=== PATIENT | male | born 1980 | race Caucasian/White ===

== ENCOUNTER 2025-01-20 12:00 | Emergency (ER) | payer SELFPAY ==
[2025-01-20 12:03] VITALS: BP 222/118
[2025-01-20 12:25] VITALS: BP 171/100
[2025-01-20 12:30] VITALS: BP 171/100
--- NOTE | 2025-01-20 12:48 | ED.GENMED ---
History of Present Illness
<Cari Francis, TARE WORKER - Last Filed: 01/22/25 08:44>
General
Chief Complaint: Facial Problem
Source: patient
Exam Limitations: none
Time Seen by Provider: 01/20/25 12:29
Nursing documentation reviewed up to this point in time: agreed with
History of Present Illness
History of Present Illness:
45 yo male w h/o TIA, CHF, Endocarditis, HTN, Aortic, Pulmonic valve replacements age 17, presents for upper lip pain and swelling which started yesterday. Denies fever/chills. Denies n/v. Afraid 'something got in there.' He was working on his bike
2 days ago.
Past History
<Cari Francis, TARE WORKER - Last Filed: 01/22/25 08:44>
Past History
ED Past Medical History: HTN, Valvular disease, Other ('ministroke' 05/2011) and Other (bacterial endocarditis)
ED Past Surgical History: Cardiac (mechanical AVR replacement 01/2007 Dr. Cardoza.; AVR/MRV 11/02/21 K[facility])
Social History
Tobacco: Smoker
Alcohol: Former
Drug: None
Personal: Single
Living: alone
Employment: Employed
Family History
Family History: Hypertension
Review of Systems
<Cari Francis, TARE WORKER - Last Filed: 01/22/25 08:44>
Review of Systems
Allergies reviewed?: Yes
All Other Systems: ROS reviewed and negative except as documented in HPI and ROS
Constitutional: Denies fever or chills
EENT: Reports other (upper lip pain and swelling)
Phy Exam
<Cari Francis, TARE WORKER - Last Filed: 01/22/25 08:44>
Physical Exam
Physical Exam:
GENERAL: No acute distress. A&Ox3.
CONSTITUTIONAL: Afebrile.
EYES: clear, conjunctivae normal
ENMT: moist mucus membranes, Pharynx nl, teeth appear healthy, upper lip with indurated, tender area, tiny scab in the center. Inner upper lip and gum appear normal.
RESPIRATORY: Regular respirations, nonlabored, lungs clear.
CARDIOVASCULAR: Regular rate and rhythm, no murmurs, no rubs.
GI: Soft, nontender, normal BS
MUSCULOSKELETAL: Moves with ease. Well perfused.
SKIN: Warm, dry, pink
PSYCH: Normal mood and affect. Well kept, interactive and appropriate
NEUROLOGIC: Awake, alert and oriented. No focal neurological deficits
Course
<Cari Francis TARE WORKER - Last Filed: 01/22/25 08:44>
Orders/Labs/Results
Orders:
Orders
01/20/25 13:08
Ampicillin/Sulbactam 3 G [Unasyn] 3 gm 0.9% Sodium Chloride 100 ml [Nss] 100 ml IV NOW
01/20/25 14:07
Ketorolac [Toradol] 15 mg IV NOW STA
Ondansetron Injectable [Zofran] 4 mg IV NOW STA
Vital Signs
Initial and Last Documented VS:
Initial Vital Signs
Temp Pulse Resp BP Pulse Ox
98 F 63 16 222/118 98
01/20/25 12:03 01/20/25 12:03 01/20/25 12:03 01/20/25 12:03 01/20/25 12:03
Last Documented Vital Signs
Temp Pulse Resp BP Pulse Ox
98 F 59 15 181/106 98
01/20/25 12:03 01/20/25 15:15 01/20/25 15:15 01/20/25 15:00 01/20/25 12:51
<Lincoln Lucero DO - Last Filed: 01/20/25 13:06>
Orders/Labs/Results
Orders:
Orders
01/20/25 13:08
Ampicillin/Sulbactam 3 G [Unasyn] 3 gm 0.9% Sodium Chloride 100 ml [Nss] 100 ml IV NOW
01/20/25 14:07
Ketorolac [Toradol] 15 mg IV NOW STA
Ondansetron Injectable [Zofran] 4 mg IV NOW STA
Vital Signs
Initial and Last Documented VS:
Initial Vital Signs
Temp Pulse Resp BP Pulse Ox
98 F 63 16 222/118 98
01/20/25 12:03 01/20/25 12:03 01/20/25 12:03 01/20/25 12:03 01/20/25 12:03
Last Documented Vital Signs
Temp Pulse Resp BP Pulse Ox
98 F 59 15 181/106 98
01/20/25 12:03 01/20/25 15:15 01/20/25 15:15 01/20/25 15:00 01/20/25 12:51
<Cari Francis NP - Last Filed: 01/22/25 08:44>
MDM/Problems Addressed
Differential Diagnosis Includes:
abscess, cellulitis
MDM/Problems Addressed:
45 yo male w h/o TIA, CHF, Endocarditis, HTN, Aortic, Pulmonic valve replacements age 17, presents for upper lip pain and swelling which started yesterday. Denies fever/chills. Denies n/v. Afraid 'something got in there.' He was working on his bike
2 days ago.
After explaining what an abscess is and what causes one, he agrees there is no reason to think there is a FB
Afebrile, NAD
Abscess upper lip. There is a 1 mm scab in the center of the indurated area which may be the entry site.
Aspiration attempt by myself and Dr. Lucero yielded nothing. Small incision with sterile #11 blade also yielded blood and minute amount of pus.
Plan: IV dose of Unasyn, rx for Augmentin sent to his pharmacy. Follow up with [facility] if not much improved in 2-3 days, return here over the weekend if worsening
Return instructions reviewed with pt and mom at bedside
2:10 p.m.
Pt moaning due to nausea. Teodora ordered, Toradol for pain.
BP high since arrival pt states not taking anything for BP as 'it went down' so he stopped his meds.
<Cari Francis, TARE WORKER - Last Filed: 01/22/25 08:44>
*Pulse Oximetry
SaO2: 98
Oxygen Mode of Delivery: Room air
Patient hypoxic: no
*Critical Care Note
Total Time (30-74mins, 75-104mins- exclusive of procedures): Not Applicable
ED Attending Note
<Cari Francis, TARE WORKER - Last Filed: 01/22/25 08:44>
-
Portions of this chart may have been created with voice recognition software.� Occasional wrong word or��sound alike� substitutions may have occurred due to the inherent limitations of voice recognition software.
<Lincoln Lucero, - Last Filed: 01/20/25 13:06>
ED Attending Note
Patient seen and examined by attending physician: Yes
I performed the substantive portion of visit, reviewed & personally made and approve the management plan that is documented in note by myself or JOSE ANGEL.: Yes
ED Attending Note:
I agree with Aileen's note
Patient presents with pain and swelling of upper lip.
Lip is visibly swollen, tender.
Bedside ultrasound used to look for a abscess collection. There is been to be a small collection. We attempted I&D without significant purulent return. Will start on antibiotics. Reevaluate if no better in 2 days.
Discharge Plan
Departure
Patient Disposition: Home (Routine Discharge)
Date of Disposition: 01/20/25
Time of Disposition: 15:23
Patient with high blood pressure during this ER visit?: No
Condition: Good
Discharge Problem:
Lip abscess
Instructions: Wound care - ED (DC), BLOOD PRESSURE, Skin Abscess
Prescriptions:
No Action
No Current Medications
0
Referrals:
[facility] - Follow up in 2-3 days
Activity Restrictions/Additional Instructions:
As we discussed warm moist compress for 10 minutes 4-6 times a day for the next 3 days.
Tylenol or Ibuprofen as needed for pain.
I sent a prescription to your pharmacy for antibiotic Augmentin to take twice a day for 10 days
Return here over the weekend if swelling, pain, redness get worse, vomiting, fever above 100.5 not relieved with Tylenol or Ibuprofen, or feeling sicker in any way
Your blood pressure is high here.. Have it rechecked next week at the clinic. It may be high due to pain and nausea. Once you feel better, it may come down.
If not, you may need blood pressure medication.
Interventions
Interventions:
*Risk Screen - Suicide Last Done: 01/20/25 12:03
*General Assessment Last Done: 01/20/25 12:27
*Neglect/Abuse Screening Last Done: 01/20/25 12:03
*ED COVID-19 Vaccine History Last Done: 01/20/25 12:27
*ED Influenza Vaccine History Last Done: 01/20/25 12:27
[facility] Risk Assessment Tool Last Done: 01/20/25 12:27
*Nursing Disposition Last Done: 01/20/25 15:54
ED- Neurological Assessment Last Done: 01/20/25 12:27
ED-Skin Assessment Last Done: 01/20/25 12:27
Discharge Date and Time
Discharge Date/Time: 01/20/25 15:55
Print Language: POLISH
[2025-01-20] MEDS: UNASYN IV (13:46)
[2025-01-20 14:03] VITALS: BP 200/105
[2025-01-20] MEDS: ZOFRAN 4 MG IV (14:14)
[2025-01-20] MEDS: TORADOL 15 MG IV (14:14)
[2025-01-20 14:57] VITALS: BP 176/112
[2025-01-20 15:00] VITALS: BP 181/106
== END 2025-01-20 15:55 | disposition home or self-care (01) ==
LOC: EMR 12:00
PROVIDERS: EMERGENCY PHYSICIAN Emergency Medicine; FAMILY PHYSICIAN Family Medicine
DX: K13.0 Diseases of lips (principal); I11.0 Hypertensive heart disease with heart failure; I50.9 Heart failure, unspecified; F17.200 Nicotine dependence, unspecified, uncomplicated; Z86.73 Personal history of transient ischemic attack (TIA), and cerebral infarction without residual deficits; Z95.2 Presence of prosthetic heart valve
CPT/HCPCS: 96375; 96365; 99284

== ENCOUNTER 2025-01-21 15:51 | Inpatient (IN) | payer OTHER, SELFPAY ==
[2025-01-21] VITALS (12 sets, daily range): BP systolic 150–197; BP diastolic 87–121; BMI 23.4; BMI 22.7
--- NOTE | 2025-01-21 13:06 | ED.GENMED ---
History of Present Illness
General
Chief Complaint: Skin Problem
Time Seen by Provider: 01/21/25 12:42
History of Present Illness
History of Present Illness:
Patient presents to the emergency department with possible lip abscess. Was seen yesterday in the emergency department and had an incision and drainage without any purulent return. He was started on Augmentin and did not pick this up from the
pharmacy. States he was doing some warm compresses overnight and had a small amount of bloody drainage. Today pain is worse, swelling is worse. He has some pain radiating to his jaw. No neck stiffness. No difficulty opening his mouth. No
fevers.
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
Past History
Past History
ED Past Medical History: HTN, Valvular disease, Other ('ministroke' 05/2011) and Other (bacterial endocarditis)
ED Past Surgical History: Cardiac (mechanical AVR replacement 01/2007 Dr. Cardoza.; AVR/MRV 11/02/21 [facility])
Social History
Tobacco: Smoker
Alcohol: Former
Drug: None
Personal: Single
Living: alone
Employment: Employed
Family History
Family History: Hypertension
Phy Exam
Physical Exam
Physical Exam:
General: No acute distress, disheveled
Head: NCAT
ENT: There is induration and erythema and warmth to the upper lip with scabbing and wound present to upper lip. There is no expressible purulence. There is no purulence or pustules inside the mouth. No trismus. Neck is supple. No tongue
elevation.
Neck, Normal in appearance, no swelling
Respiratory: No Respiratory distress
Abdomen: No distension
Ext: no edema
Neuro: HOLLAND, AOx4
Psych: Normal affect
Skin: Normal color
Sepsis
Sepsis Screening
Sepsis Assessment: Sepsis
Sepsis Screen
Sepsis Screen: Sepsis
Date: 01/21/25
Time: 18:00
Course
Orders/Labs/Results
Orders:
Orders
01/21/25 13:03
Doxycycline [Vibramycin] 100 mg PO NOW STA
Naproxen [Naprosyn] 500 mg PO NOW STA
01/21/25 13:42
Basic Metabolic Panel Urgent
Complete Blood Count/With Diff Urgent
Lactate Level [Lactic Acid] Urgent
Blood Culture Q30M
TITA Source: Blood/Venous
Specimen Description:
01/21/25 13:54
Vancomycin [Vancocin] 2,000 mg 0.9% Sodium Chloride 500 ml [Nss] 500 ml IV NOW
01/21/25 14:15
Blood Culture Q30M
TITA Source: Blood/Venous
Specimen Description:
01/21/25 14:50
CT Facial Bones W/ Iv Contrast Urgent
Comment:
Reason For Exam: evaluate extent of infection to anterior upper lip
01/21/25 15:24
Admit/Transfer Patient As Directed
Co-Sign Provider:
Level of Care: Inpatient admission
Assign to:: Medical/Surgical
Physician / Group: Walden/hospitalist
Diagnosis: facial cellulitis
Reason for Hospitalization: Cellulitis
Expected length of stay greater than two midnights?: Yes
ELOS- Estimated Length of Stay in days: 3
I certify the patient meets the requirements for IP care: Yes
01/21/25 15:25
PRN Pain Medication Management As Directed
May give lesser potent ordered pain med per pt: Yes
preference::
Protocol:: Medication orders for pain may be administered in a
manner that supports deferring to patient preference
when the pt is:
- Requesting an ordered lesser potent pain medication.
Least to most potent pain medications are defined
as: acetaminophen < NSAID < tramadol < opioids
(morphine, oxycodone, hydromorphone).
- Requesting a lesser dose of the same medication IF
ORDERED.
- Requesting a less intrusive route of administration
if both routes are prescribed by the provider (PO <
IV).
01/21/25 15:27
Code Status As Directed
Resuscitation Status: Full Code
01/21/25 17:28
Acetaminophen [Tylenol] 650 mg PO Q4HPRN PRN
Bisacodyl [Dulcolax] 10 mg RECTAL [id number] PRN
Docusate W/Senna [Senokot-S] 1 tablet PO BIDPRN PRN
Polyethylene Glycol Powder [Miralax] 17 grams PO DAILYPRN PRN
VANCOMYCIN Pharmacy to Dose [VANCOCIN Pharmacy to Dose] 1 each Pharmacy To Prepare [Call Pharmacy To Prepare] 0 ml IV PER PROTOCOL
01/21/25 17:28
Activity As Directed
Activity Level: Out of Bed-Early Mobility
Vital Signs As Directed
Frequency: Per unit guidelines
DX Deep Vein Thrombosis Video Routine
01/21/25 17:32
HYDROmorphone [Dilaudid] 0.25 mg IM Q4HPRN PRN
01/21/25 18:00
Enoxaparin Sodium [Lovenox] 40 mg SC QPM
01/22/25 06:00
Basic Metabolic Panel IN AM
Complete Blood Count/With Diff IN AM
Abnormal Lab Results
01/21/25
13:42
WBC 13.0 H 10^3/uL
(4.8-10.8)
MPV 10.8 H fL
(7.4-10.4)
Absolute Neuts (auto) 10.0 H 10^3/uL
(1.4-6.5)
Absolute Monos (auto) 1.4 H 10^3/uL
(0.1-0.6)
Neutrophils % 77.1 H %
(42.2-75.2)
Lymphocytes % 11.1 L %
(20.5-51.1)
Monocytes % 10.5 H %
(1.7-9.3)
Sodium 134 L mmol/L
(135-145)
01/21/25 13:42
01/21/25 13:42
Vital Signs
Initial and Last Documented VS:
Initial Vital Signs
Temp Pulse Resp BP Pulse Ox
99.0 F 58 22 197/113 98
01/21/25 12:34 01/21/25 12:34 01/21/25 12:34 01/21/25 12:34 01/21/25 12:34
Last Documented Vital Signs
Temp Pulse Resp BP Pulse Ox
98.3 F 61 22 178/98 98
01/21/25 17:35 01/21/25 17:35 01/21/25 17:35 01/21/25 17:35 01/21/25 17:35
*Pulse Oximetry
SaO2: 98
Oxygen Mode of Delivery: Room air
Patient hypoxic: no
*Critical Care Note
Total Time (30-74mins, 75-104mins- exclusive of procedures): Not Applicable
ED Attending Note
ED Attending Note
ED Attending Note:
Patient with return visit with worsening oral infection and likely early abscess formation, though no fluctuance or purulence at this time. Considered social determinants of health and given patient has not been able to pick up operator his antibiotic, with
his history of endocarditis and bacteremia, he is high risk for outpatient management. Will place an IV and give IV antibiotics and admit for further treatment.
-
Portions of this chart may have been created with voice recognition software.� Occasional wrong word or��sound alike� substitutions may have occurred due to the inherent limitations of voice recognition software.
Discharge Plan
Departure
Patient Disposition: Admit
Date of Disposition: 01/21/25
Time of Disposition: 14:36
Presentation/result/management discussed w/ accepting MD/DO: Hospitalist
Discharge Problem:
Cellulitis of face
Interventions
Interventions:
*Risk Screen - Suicide Last Done: 01/21/25 14:29
*General Assessment Last Done: 01/21/25 14:28
*Neglect/Abuse Screening Last Done: 01/21/25 14:29
*ED COVID-19 Vaccine History Last Done: 01/21/25 14:28
*ED Influenza Vaccine History Last Done: 01/21/25 14:28
[facility] Fall Risk Assessment Tool Last Done: 01/21/25 14:28
*Nursing Disposition Last Done: 01/21/25 17:25
ED-Skin Assessment Last Done: 01/21/25 14:27
Discharge Date and Time
Discharge Date/Time: 01/21/25 17:26
[2025-01-21] MEDS: NAPROSYN 500 MG PO (13:29)
--- NOTE | 2025-01-21 13:55 | EDRN ---
Dr. Nolasco said not to administer doxycycline only vancocin. Pharmacy called to mix and send vancocin.
[2025-01-21 14:01] LABS: Hematocrit 48.8 % (39.0-52.0); Hemoglobin 16.7 g/dL (13.0-18.0); Mean Corp Hgb Conc. 34.2 g/dL (33.0-37.0); Mean Corpuscular Volume 88.9 fL (80.0-94.0); Nucleated Red Blood Cells % 0 % (-); Platelet Count 162 10^3/uL (130-400); Red Cell Dist. Width 12.0 % (11.5-14.5)
[2025-01-21 14:15] LABS: Blood Urea Nitrogen 18 mg/dl (9-20); Calcium 9.4 mg/dl (8.4-10.2); Carbon Dioxide 28 mmol/L (22-30); Chloride 99 mmol/L (98-107); Estimated Creatinine Clearance > 125 ml/min; Glucose 92 mg/dl (70-99); Potassium 4.7 mmol/L (3.5-5.1); Sodium 134 mmol/L (135-145); eGFR > 60.00
[2025-01-21] MEDS: VANCOCIN 540 MG IV (14:22)
--- NOTE | 2025-01-21 15:34 | HPS.HSE ---
Addendum entered and electronically signed by Junior Walden MD 01/21/25 16:23:
I personally performed a history and physical exam of the patient and discussed management with the resident. I reviewed the resident's note and agree with the documented findings and plan of care HPI/CC.
45-year-old male with extensive cardiac medical history status post mitral aortic valve replacement who is presented with worsening of right upper lip swelling and pain. Patient was seen in ER yesterday for similar complaints and was prescribed
antibiotics which patient never picked up from the pharmacy. Patient was working on his bike and felt a metal piece hit his lip and had a laceration subsequently afterwards. States fevers and chills at home. Sitting of swelling. Denies any pain
in the teeth or oral region.
General: In mild distress due to pain
HEENT: NormoCephalic, Anicteric and Other (Upper lip: Moderate warmth, induration, erythema, swelling, tenderness of upper lip with red color scab/wound present. No fluctuance. No trismus. No tongue deviation. No uvula deviation. Neck is supple.
No damage to the gum noted
Respiratory: Clear
Cardiac: S1/S2 and Regular Rhythm
GI: Soft, Non Tender and Non Distended
Musculoskeletal: No Edema
Neuro: AO x 3
Hematologic/Lymphatic: No Lymphadenopathy
Psych: Calm
Assessment and plan
Acute right upper lip/facial cellulitis secondary to trauma
Mild leukocytosis with left-sided shift
Mild hyponatremia
Elevated blood pressure likely secondary to pain
Plan
Start patient on IV vancomycin
Vancomycin dosing per pharmacy
CT face ordered and pending
Ice pack for swelling
Follow-up on the blood culture results
Pain control
Monitor blood pressure
DVT prophylaxis
Original Note:
Family Physician
-
Family Physician: NOT KNOW UNKNOWN - PT DOES
Chief Complaint
-
Cellulitis
History of Present Illness
45-year-old male with complex cardiac history of congenital heart disease, Ross procedure in 1997, s/p AVR by Dr. Bliss 2006, acute endocarditis secondary to infective tooth and was sent to [place] for MVR and AVR in 2021.
He presents with upper lip swelling, and pain. Patient was seen in the ED yesterday with redness, swelling and pain of the upper lip ongoing for 3 days. He was prescribed Augmentin but did not pick the medication from pharmacy. Patient states
that 3 days ago he was working on his bike and he felt that a metal piece hit his lip and he had a laceration. He denies engulfing the foreign body however since then he has been having fever, chills, swelling and pain.
Medical History
Past Medical History
Past Medical History: Reports Other (h/o congenital heart disease s/p ross procedure age 16 s/p AVR by dr. peterson 2006 bacterial endocarditis secondary to infected tooth and was sent to [place] where he had the MVR and AVR on 11/02/21)
Past Surgical History: Reports Other (as above )
Social History
Tobacco: Smoker (occassionally)
Alcohol: None
Drug: None
Personal: Single
Living: Alone
Employment: Employed
Family History
Family History: Not pertinent
Allergies / Home Medications
Allergies reflects when Allergies were last updated in [facility].
Home Medications with original date entered in [facility]
Allergy/Medication List:
Allergies
Allergy/AdvReac Type Severity Reaction Status Date / Time
No Known Allergies Allergy Verified 01/20/25 12:02
Home Medications
No Meds [No Current Medications] 01/21/25
Review of Systems
-
History Source: Patient
A 12 point ROS was completed and negative except as noted: Yes
Physical Exam
Vital Signs
Vital Signs
Temp Pulse Resp BP Pulse Ox
99.0 F 79 24 181/115 96
01/21/25 12:34 01/21/25 15:15 01/21/25 15:15 01/21/25 15:00 01/21/25 15:15
Physical Exam
General: Conversant and Pain
HEENT: NormoCephalic, Anicteric and Other (Upper lip: Moderate warmth, induration, erythema, swelling, tenderness of upper lip with red color scab/wound present. No fluctuance. No trismus. No tongue deviation. No uvula deviation. Neck is supple. )
Respiratory: Clear
Cardiac: S1/S2 and Regular Rhythm
GI: Soft, Non Tender and Non Distended
Musculoskeletal: No Edema
Neuro: AO x 3
Hematologic/Lymphatic: No Lymphadenopathy
Psych: Calm
Laboratory Results
-
01/21/25 13:42
01/21/25 13:42
Laboratory Results
Lactic Acid 0.9 mmol/L (0.7-2.0) 01/21/25 13:42
Data Reviewed
-
Lab Data: Labs Reviewed by me and Discussed with Physician
Impression/Plan
-
IMPRESSION:
Upper lip cellulitis in setting of lip injury
History of congenital heart disease
History of Ross procedure at age 16
S/p AVR IN 2006
History of infective endocarditis s/p MVR and AVR in 2021
PLAN:
Upper lip cellulitis in the setting of lip injury
Afebrile, leukocytosis [id number]
FB injury while fixing his bike.
No Trismus or uvula deviation
Hemodynamically stable
Await for CT scan of facial bones.
Previous microbiology positive for Streptococcus mitis.
Continue Vancomycin.
Pain control.
Await blood culture
#History of congenital heart disease
#History of Ross procedure at age 16
#S/p AVR IN 2006
#History of infective endocarditis s/p MVR and AVR in 2021
Full code
Lovenox
Clear diet
--- NOTE | 2025-01-21 16:08 | CM ---
Chart reviewed. spoke with pt at ED bedside
Pt is in lots of pain
Lives in a house rented from his friend
Independent
PCP Melany Jaime
does NOT have one
RX yes
Pharmacy [facility]? he was not sure
no hx of VN nor SNF
DCP is to return home
CM will continue to follow up for any dcp needs
[2025-01-21] MEDS: TYLENOL 650 MG PO (16:11)
[2025-01-21] MEDS: MORPHINE SULFATE 2 MG IV ×2 (16:38→21:54)
[2025-01-21] MEDS: APRESOLINE 10 MG PO ×2 (17:15→21:46)
--- NOTE | 2025-01-21 17:55 | PHA.VAN.IN ---
Assessment
- Assessment
Renal Function: Appears similar to baseline
AUC Dosing Plan
- Dosing Variables
Dosing Weight (kg): 75.9
Dosing CrCl (ml/min): > 125
Vd coefficient (L/kg): 53
- Empiric Dosing
Initial / Loading Dose: Vancomycin 2 gram IV x 1
Maintenance Regimen: Vancomycin 1 gram IV q8h
Estimated AUC (mcg*h/mL): 550
Estimated Peak (mcg*h/mL): 32.5
Estimated Trough (mcg/ml): 15.2
Estimated Half Life (H): 6.4
- Monitoring
No levels ordered at this time: Consider level in a few days
Pharmacokinetics Vancomycin I
- -
Patient Age: 45
Patient Sex: Male
Vancomycin Day #: 1
Indication: Skin And Soft Tissue
Requesting Provider: Dr. Fischer
Pertinent Antimicrobial Allergies:
NKDA
Height / Weight:
Height 6 ft
Actual Weight 75.977 kg
Pertinent Past Medical History: Endocarditis, BMI: 22.7
- Vital Signs / Lab Results
Temp Pulse Resp BP Pulse Ox
98.3 F 61 22 178/98 98
01/21/25 17:35 01/21/25 17:35 01/21/25 17:35 01/21/25 17:35 01/21/25 17:35
Lab Results - Hematology
01/21/25
13:42
WBC 13.0 H
Lab Results - Chemistry
01/21/25
13:42
BUN 18
Creatinine 0.8
Estimated Creat Clear > 125
01/21/25
13:42
Lactic Acid 0.9
--- NOTE | 2025-01-21 18:00 | PTCARENOTE ---
Pt received from ER at 1800. PT sleeping, not happy did not want to answer any of the admitting questions and wanted me to leave him alone. pt denied any pain, he quickly told me his last drink was ten years ago, smokes half a pack a week and does
not do drugs and is not suicidal. Right lip swollen crusty
[2025-01-21] MEDS: VANCOCIN 200 IV (21:33)
[2025-01-22] MEDS: TORADOL 15 MG IV (00:09)
[2025-01-22 03:21] VITALS: BP 170/108
--- NOTE | 2025-01-22 04:13 | PTCARENOTE ---
Pt with elevated BP throughout the night, despite PRN HDLZ or pain management. Pt woke up in a sweat, gown and bed sheets changed. Pt afebrile and asymptomatic otherwise. MUNA Ritter aware of BP. Advised to continue to monitor.
[2025-01-22] MEDS: VANCOCIN 200 IV ×3 (05:24→21:20)
[2025-01-22 07:25] LABS: Hematocrit 46.0 % (39.0-52.0); Hemoglobin 15.9 g/dL (13.0-18.0); Mean Corp Hgb Conc. 34.6 g/dL (33.0-37.0); Mean Corpuscular Volume 87.6 fL (80.0-94.0); Nucleated Red Blood Cells % 0 % (-); Platelet Count 166 10^3/uL (130-400); Red Cell Dist. Width 12.0 % (11.5-14.5)
[2025-01-22 07:42] LABS: Blood Urea Nitrogen 20 mg/dl (9-20); Calcium 8.9 mg/dl (8.4-10.2); Carbon Dioxide 26 mmol/L (22-30); Chloride 101 mmol/L (98-107); Estimated Creatinine Clearance 124 ml/min; Glucose 92 mg/dl (70-99); Potassium 4.5 mmol/L (3.5-5.1); Sodium 134 mmol/L (135-145); eGFR > 60.00
--- NOTE | 2025-01-22 08:27 | PHA.VAN.FU ---
Vancomycin Assessment / Plan
- Assessment
Renal Function: Stable
WBC's are: Trending Down
In the past 24 hrs, patient has been: Afebrile
- Dosing Plan
Continue: Vanc 1gm q8H
- Monitoring Plan
Peak Level: 01/23 0100
Trough Level: 01/23 0530
- Follow Up
Pharmacy will continue to follow.
Vancomycin Follow UP
- -
Patient Age: 45
Patient Sex: Male
Vancomycin Day #: 2
Indication: Skin And Soft Tissue
Requesting Provider: Dr. Fischer
Pertinent Antimicrobial Allergies:
NKDA
Height / Weight:
Height 6 ft
Actual Weight 75.977 kg
Pertinent Past Medical History: Endocarditis, BMI: 22.7
- Vital Signs / Lab Results
Temp Pulse Resp BP Pulse Ox
98.3 F 55 18 170/108 93
01/22/25 03:21 01/21/25 23:27 01/21/25 21:42 01/22/25 03:21 01/21/25 21:42
Lab Results - Hematology
01/21/25 01/22/25
13:42 06:56
WBC 13.0 H 10.9 H
Lab Results - Chemistry
01/21/25 01/22/25
13:42 06:56
BUN 18 20
Creatinine 0.8 0.8
Estimated Creat Clear > 125 124
01/21/25
13:42
Lactic Acid 0.9
[2025-01-22 08:31] VITALS: BP 182/103
[2025-01-22] MEDS: TYLENOL 650 MG PO ×3 (09:17→18:07)
[2025-01-22] MEDS: ROXICODONE 5 MG PO ×3 (09:17→18:07)
[2025-01-22] MEDS: PROCARDIA XL (EXTENDED RELEASE) 30 MG PO (09:49)
--- NOTE | 2025-01-22 11:21 | W.PN.HOSP.TC ---
Today's Communication/Plan
-
Transfer to telemetry
Start blood pressure medication
Continue IV antibiotics
Pain control
Assessment / Plan
Assessment / Plan
General: In mild distress due to pain
HEENT: NormoCephalic, Anicteric and Other (Upper lip: Moderate warmth, induration, erythema, swelling, tenderness of upper lip with red color scab/wound present. No fluctuance. No trismus. No tongue deviation. No uvula deviation. Neck is supple.
No damage to the gum noted
Respiratory: Clear
Cardiac: S1/S2 and Regular Rhythm
GI: Soft, Non Tender and Non Distended
Musculoskeletal: No Edema
Neuro: AO x 3
Hematologic/Lymphatic: No Lymphadenopathy
Psych: Calm
Assessment and plan
#Acute right upper lip/facial cellulitis with abscess secondary to trauma
#Mild leukocytosis with left-sided shift
Improvement in WBC. Continue vancomycin
Vancomycin dosing per pharmacy
CT face There is subcutaneous soft tissue thickening/edema and inflammatory change throughout the upper lip, with underlying heterogeneous fluid collection spanning over approximately 2.1 x 0.8 x 1.6 cm, likely abscess.
Ice pack for swelling
Follow-up on the blood culture results-in lab
Pain control
ENT eval-unclear if will require I&D
#Mild hyponatremia
Monitor for now
#Elevated blood pressure likely secondary to pain versus undiagnosed primary hypertension
Start patient on Procardia
#History of congenital heart disease
#History of Ross procedure at age 16
#S/p AVR IN 2006
#History of infective endocarditis s/p MVR and AVR in 2021
DVT prophylaxis with Lovenox
Tx to tele
Anticipated Discharge: > 48 hours
Subjective/Interval History
-
Date of Service: January 22, 2025
States of persistent pain at the right upper lip
Objective Data
-
Labs:
Laboratory Results
01/22/25
06:56
WBC 10.9 H
Hgb 15.9
Hct 46.0
Plt Count 166
Sodium 134 L
Potassium 4.5
Chloride 101
Carbon Dioxide 26
BUN 20
Creatinine 0.8
Glucose 92
Calcium 8.9
Vital Signs:
Vital Signs
Temp Pulse Resp BP Pulse Ox
98.5 F 53 20 182/103 93
01/22/25 08:31 01/22/25 08:31 01/22/25 08:31 01/22/25 08:31 01/22/25 08:31
I&O
01/21/25 01/22/25 01/23/25
06:59 06:59 06:59
Output Total 600 / 600
Balance -600 / -600
Data Reviewed
-
Total Time Spent with Patient (in minutes): 55
[2025-01-22 11:56] VITALS: BP 139/70
--- NOTE | 2025-01-22 13:43 | W.CON.OTO ---
Otolaryngology Consult
Chief Complaint
Right upper lip swelling
History of Present Illness
Patient is a 45-year-old male who on was working on his bicycle and felt like some metal cut his right upper lip. After 24 hours he had significant pain and swelling in his right upper lip. He came to the emergency room Thursday evening.
An incision and drainage was attempted but there was only minimal purulence expressed. The patient was treated with oral Augmentin. Apparently he never picked up his medication. On Thursday the pain and swelling got worse. He therefore presented
back to the emergency room for further evaluation. on Thursday, Ray had increased pain and swelling in his right upper lip along with mild fever and chills at home. He also had some night sweats noted. A CT scan was performed which showed
inflammation with a small abscess at the right upper lip. The patient was admitted for IV antibiotics. He is now on vancomycin and has been for nearly 24 hours. He still has some right upper lip pain. He feels that there is some minimal purulent
drainage at times. He denies any current fevers or chills but states he did have night sweats last evening. He is able to speak, swallow, and breathe without any difficulty.
Medical History
Additional Past Medical History:
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
Additional Past Surgical History:
S/p ross procedure age 16 s/p AVR by dr. Cardoza 2006, MVR and AVR on 11/02/21
Patient Allergies:
Allergies
Allergy/AdvReac Type Severity Reaction Status Date / Time
No Known Allergies Allergy Verified 01/20/25 12:02
Home Medications / Current Medications:
�Medication �Instructions �Recorded
No Meds [No Current Medications] 01/21/25
Physical Exam
Vitals / Labs:
Vital Signs
Temp 98.5 F 01/22/25 08:31
Temp route: Oral 01/22/25 08:31
Pulse 52 01/22/25 11:56
Resp Rate 20 01/22/25 11:56
Blood pressure 139/70 01/22/25 11:56
Blood pressure extremity used: Left upper arm 01/22/25 11:56
Position: Lying 01/22/25 11:56
MAP (cuff-Zuri Monitor) 114 01/21/25 17:12
SaO2 97 01/22/25 11:56
Oxygen Mode of Delivery Room air 01/22/25 11:56
Can the patient verbally communicate their pain? Yes 01/22/25 11:05
Pain scale rating: Asleep 01/22/25 10:17
Actual Weight 75.977 kg 01/21/25 17:35
Body Mass Index (BMI) 22.7 01/21/25 17:35
Lab Results
01/22/25 06:56
01/22/25 06:56
Exam:
Awake, alert, oriented, in no acute distress.
Afebrile, vital signs stable.
Head normocephalic and atraumatic.
Ears clear bilaterally.
Nasal cavity clear anteriorly, mucous membrane within normal limits.
Oral cavity with significant edema and erythema at right upper lip, scab present centrally, minimal purulent drainage noted, tender on examination, mild edema of mucosa internally as well, remainder of oropharynx and oral cavity unremarkable without
any significant edema, no mass or neoplasm present
Neck within normal limits, soft and supple, no mass or neoplasm present.
Assessment / Plan
45-year-old male with right upper lip abscess and cellulitis
- Patient seems to have suffered traumatic injury on , cut by metal.
- Now with cellulitis and small abscess to right upper lip.
- Had attempted I&D in ER 48 hours ago that was unsuccessful.
- Patient still has a large scab centrally.
- I think minimal pus is present in the upper lip. Would be very painful and likely difficult to incise and drain currently.
- Continue IV vancomycin.
- Start topical mupirocin ointment.
- Warm compresses frequently.
- Reassess in 24 to 48 hours.
- If patient improves then would anticipate changing to oral antibiotics for minimum 10 days upon discharge.
- If he does not improve then can consider I&D at that point in time.
Data Reviewed
CT Scan: Image Personally Visualized and interpreted and Discussed with Patient
Lab Data: Labs Reviewed by me
--- NOTE | 2025-01-22 14:06 | PTCARENOTE ---
PCT and myself were in with patient rechecking is vitals together. As we were getting bp he kept raising his arm up in air and we asked him to not move it. the more we asked the more agitated he got. we used deescilated techniques. Then we got the
temp. we put probe into left side of the mouth purposefully to avoid right side. he immediately got agitated and stated that we put it on his wound. multiple times i tried to explain that in no time was the probe near his right lip he grew more
agitated and started to verbally get aggressive with us. The room mate made a curse statement directed at the patient and which time he got intensely agitated and made a combattive threatening remark towards room mate. due to eyes and tenseness of
his body i immediatly called philippe alonso out of fear of possible alteration. philippe alonso called just in case. Pt being assigned room [id number] to separate them.
[2025-01-22] MEDS: BACTROBAN 2% OINTMENT 1 APPLIC TOPICAL ×2 (15:32→21:30)
[2025-01-22 16:31] VITALS: BP 139/76
[2025-01-22 19:00] VITALS: BP 140/78
[2025-01-22 23:00] VITALS: BP 144/84
[2025-01-23 03:00] VITALS: BP 131/79
[2025-01-23] MEDS: ROXICODONE 5 MG PO (04:38)
[2025-01-23 04:46] VITALS: BMI 23.2
[2025-01-23] MEDS: VANCOCIN 200 IV (05:47)
[2025-01-23 05:52] LABS: Hematocrit 42.9 % (39.0-52.0); Hemoglobin 14.9 g/dL (13.0-18.0); Mean Corp Hgb Conc. 34.7 g/dL (33.0-37.0); Mean Corpuscular Volume 86.7 fL (80.0-94.0); Nucleated Red Blood Cells % 0 % (-); Platelet Count 188 10^3/uL (130-400); Red Cell Dist. Width 11.9 % (11.5-14.5)
[2025-01-23 06:16] LABS: Blood Urea Nitrogen 21 mg/dl (9-20); Calcium 9.0 mg/dl (8.4-10.2); Carbon Dioxide 28 mmol/L (22-30); Chloride 102 mmol/L (98-107); Estimated Creatinine Clearance 113 ml/min; Glucose 98 mg/dl (70-99); Potassium 4.5 mmol/L (3.5-5.1); Sodium 134 mmol/L (135-145); eGFR > 60.00
[2025-01-23 07:27] VITALS: BP 168/88
--- NOTE | 2025-01-23 07:30 | W.PN.HOSP.TC ---
Today's Communication/Plan
-
discharge
Assessment / Plan
Assessment / Plan
Physical Exam
General: In mild distress due to pain
HEENT: NormoCephalic, Anicteric Upper lip clot noted
Respiratory: Clear
Cardiac: S1/S2 and Regular Rhythm
GI: Soft, Non Tender and Non Distended
Musculoskeletal: No Edema
Neuro: AO x 3 conversant coherent
Hematologic/Lymphatic: No Lymphadenopathy
Psych: Calm
Assessment and plan
#Acute right upper lip/facial cellulitis with abscess secondary to trauma
#Mild leukocytosis with left-sided shift
Leukocytosis resolved
CT face There is subcutaneous soft tissue thickening/edema and inflammatory change throughout the upper lip, with underlying heterogeneous fluid collection spanning over approximately 2.1 x 0.8 x 1.6 cm, likely abscess.
blood cultures ngtd
Pain control
ENT eval appreciated ok to switch IV vanc to ciprofloxacin 14 days, outpt ENT follow up in 1-2 weeks
#Mild hyponatremia
#Elevated blood pressure likely secondary to pain/stress versus possible undiagnosed primary hypertension
Started on Procardia in hospital
BP significantly improved since admission with improvement symptoms, recommend home BP monitoring, results to be discussed with primary care provider for possible start Antihypertensive
#History of congenital heart disease
#History of Ross procedure at age 16
#S/p AVR IN 2006
#History of infective endocarditis s/p MVR and AVR in 2021
DVT prophylaxis with Lovenox
Tx to tele
Total Time Preparing Discharge ___40____ minutes including examination of the patient, summary of the hospital stay, instructions for continuing care to all relevant caregivers; and preparation of discharge records, prescriptions, and referral
forms if necessary.
Anticipated Discharge: Today
Subjective/Interval History
-
Date of Service: January 23, 2025
No acute distress, resting comfortably in bed. Reports swelling erythema lip significantly improved, spontaneous drainage over night. Overall reports feeling well. Denies new acte issues at this time. Eager to go home.
Objective Data
-
Labs:
Laboratory Results
01/23/25
05:34
WBC 8.2
Hgb 14.9
Hct 42.9
Plt Count 188
Sodium 134 L
Potassium 4.5
Chloride 102
Carbon Dioxide 28
BUN 21 H
Creatinine 0.9
Glucose 98
Calcium 9.0
Vital Signs:
Vital Signs
Temp Pulse Resp BP Pulse Ox
98.1 F 60 18 168/88 99
01/23/25 07:27 01/23/25 07:27 01/23/25 07:27 01/23/25 07:27 01/23/25 07:27
I&O
01/22/25 01/23/25 01/24/25
06:59 06:59 06:59
Intake Total 1919 / 1919
Output Total 1000 / 1000
Balance 920 / 920
[2025-01-23] MEDS: PROCARDIA XL (EXTENDED RELEASE) 30 MG PO (08:43)
[2025-01-23] MEDS: BACTROBAN 2% OINTMENT 1 APPLIC TOPICAL (08:46)
--- NOTE | 2025-01-23 08:48 | PHA.VAN.FU ---
Vancomycin Assessment / Plan
- Assessment
Renal Function: Stable
WBC's are: Trending Down
In the past 24 hrs, patient has been: Afebrile
Concomitant Antimicrobials: Mupirocin ointment
- Assessment - Therapeutic Drug Monitoring
Extrapolated Cmax (mcg/mL): 27.4
Peak level was drawn: More than 3 hours after previous dose (drawn 4 hours after dose given)
Extrapolated Cmin (mcg/mL): 14.6
Trough Drawn: Appropriately
Calculated AUC (mcg*h/mL): 490
Calculated ke: 0.0899
Calculated half life (H): 7.7
Calculated Vd (L): 68.03
Calculated Vanc CL (ml/min): 101.96
- Dosing Plan
Continue: Vancomycin 1000mg IV Q8h
- Monitoring Plan
Level(s) appropriate: Recheck trough at minimum of weekly intervals, Repeat sooner for changes in renal function or clinical status
- Follow Up
Pharmacy will continue to follow.
Vancomycin Follow UP
- -
Patient Age: 45
Patient Sex: Male
Vancomycin Day #: 3
Indication: Skin And Soft Tissue
Requesting Provider: Dr. Fischer
Pertinent Antimicrobial Allergies:
NKDA
Height / Weight:
Height 6 ft
Actual Weight 77.655 kg
Pertinent Past Medical History: Endocarditis, BMI: ~23
- Vital Signs / Lab Results
Temp Pulse Resp BP Pulse Ox
98.1 F 60 18 168/88 99
01/23/25 07:27 01/23/25 07:27 01/23/25 07:27 01/23/25 07:27 01/23/25 07:27
Lab Results - Hematology
01/21/25 01/22/25 01/23/25
13:42 06:56 05:34
WBC 13.0 H 10.9 H 8.2
Lab Results - Chemistry
01/21/25 01/22/25 01/23/25
13:42 06:56 05:34
BUN 18 20 21 H
Creatinine 0.8 0.8 0.9
Estimated Creat Clear > 125 124 113
01/21/25
13:42
Lactic Acid 0.9
Microbiology Results
01/21/25 14:15 Blood Culture - Preliminary
Blood/Venous No Growth in 24 hours- Final report to follow
01/21/25 13:42 Blood Culture - Preliminary
Blood/Venous No Growth in 24 hours- Final report to follow
Therapeutic Drug Monitoring
Vancomycin Peak 20.8 ug/ml (18-26) 01/23/25 01:24
Vancomycin Trough 14.3 ug/ml (5-20) 01/23/25 05:34
[2025-01-23 11:09] VITALS: BP 119/70
--- NOTE | 2025-01-23 12:46 | W.PN.ENT ---
Today's Communication
-
Can switch to oral antibiotics. Continue warm compresses. Continue Bactroban ointment. Follow-up in office in 1 to 2 weeks.
Impression / Plan
-
A/P- 45-year-old male with right upper lip cellulitis
- Patient improving while on IV vancomycin.
- Patient would like to go home this afternoon.
- I do think the patient can be safely discharged home on oral antibiotics.
- Would recommend oral ciprofloxacin 500 mg twice daily for 14 days. If he cannot take ciprofloxacin then doxycycline or Bactrim can also be given, both for 14 days as well.
- Patient should continue mupirocin ointment twice daily at home.
- Continue warm compresses to encourage expression of pus.
- Patient should call for outpatient follow-up in 1 to 2 weeks.
Subjective Data
-
Patient feeling better this morning.
Feels like his lip is less swollen and less painful.
Denies any fevers or chills.
Has been using warm compresses and getting some purulent drainage from his lip.
Patient also using topical Bactroban ointment.
Objective Data
-
Vital Signs
Temp Pulse Resp BP Pulse Ox
98.8 F 58 18 119/70 98
01/23/25 11:09 01/23/25 11:09 01/23/25 11:09 01/23/25 11:09 01/23/25 11:09
Intake & Output
01/22/25 01/23/25 01/24/25
06:59 06:59 06:59
Intake:
Oral fluids 1919
Output:
Urine, Voided 1000 / 1000
Lab Results
01/23/25 05:34
01/23/25 05:34
Calcium 9.0 mg/dl (8.4-10.2) 01/23/25 05:34
Physical Exam
-
Awake, alert, oriented, in no acute distress.
Afebrile, vital signs stable.
Head normocephalic and atraumatic.
Ears clear bilaterally.
Nasal cavity clear anteriorly, mucous membrane within normal limits.
Oral cavity with decreased edema and erythema at right upper lip, mild to moderate overall, moderate scab present centrally, scant purulent drainage noted, mildly tender on examination, mild edema of mucosa internally as well, remainder of
oropharynx and oral cavity unremarkable without any significant edema, no mass or neoplasm present
Neck within normal limits, soft and supple, no mass or neoplasm present.
--- NOTE | 2025-01-23 13:44 | W.DCSUMMARY ---
Discharge Summary
Discharge Data
Date of Admission: 01/21/25
Date of Discharge: 01/23/25
-
Pending Results: Yes
Additional Pending Results:
official culture results
Discharge Plan
-
Patient Disposition: Home (Routine Discharge)
Discharge Diagnosis/Procedures: right upper lip/facial cellulitis with abscess secondary to trauma
Possible Primary Hypertension vs Stress Induced Blood Pressure Elevations
Condition: Fair
Diet: Regular
Activity: As tolerated
Driving Restrictions: avoid driving when on opiate pain meds (oxycodone)
Bathing Restrictions: None
Activity Restrictions/Additional Instructions:
Follow up with primary care provider in 1 week of discharge and ENT in 1-2 weeks of discharge.
Ciprofloxacin and Mupirocin ointment have been prescribed for upper lip wound infection- for 14 days.
Oxycodone has been prescribed as needed for pain.
Please take medications as prescribed/recommended and follow up with primary care provider, ENT, and/or other healthcare provider involved in your care for refills and/or further adjustment to your medication regimen as necessary.
Keep a daily log of your blood pressures at home, to review with your primary care provider in follow up for further evaluation treatment possible essential Hypertension.
Referrals:
Salazar Cristobal MD [Active, ENT] - in one to two weeks
UNKNOWN - PT DOES,NOT KNOW [Family Provider]
Prescriptions:
New
mupirocin 2 % Ointment
1 applic topical TID Qty: 22 0RF
Rx Instructions:
Lip wound
ciprofloxacin HCl 500 mg Tablet
500 mg PO BID 14 Days Qty: 28 0RF
oxycodone 5 mg Tablet
5 mg PO BIDPRN PRN (Reason: mod severe pain) Qty: 10 0RF
Discharge Orders:
Discharge Patient (As Directed); Ordered 01/23/25
Ordered By: Ramon Franco
Discharge Date and Time
Print Language: MALAWIAN
[2025-01-23 14:34] VITALS: BP 150/85
--- NOTE | 2025-01-23 15:31 | CM ---
Pt cleared for discharge to home today. He is (I) amb and adls, anxious to leave.
Plan: Discharge to home with no identified needs. Pt's friend provided transport home.
== END 2025-01-23 15:06 | disposition home or self-care (01) | DRG 603 ==
LOC: 3 WEST ACU 15:51
PROVIDERS: Student in an Organized Health Care Education/Training Program; ADMITTING PHYSICIAN Hospitalist; ATTENDING PHYSICIAN Internal Medicine; CONSULT PHYSICIAN Otolaryngology; EMERGENCY PHYSICIAN Emergency Medicine
DX: L03.211 Cellulitis of face (principal); L02.01 Cutaneous abscess of face; E87.1 Hypo-osmolality and hyponatremia; K13.0 Diseases of lips; F17.200 Nicotine dependence, unspecified, uncomplicated; I10 Essential (primary) hypertension
CPT/HCPCS: 70487; 80048; 80202; 83605; 85025; 87040; 96365; 96366; 99285; Q9967